=== PATIENT | female | born 1955 | race Caucasian/White ===

== ENCOUNTER 2016-11-22 10:51 | Outpatient (CLI) | payer BC ==
[2016-11-22 11:16] LABS: Anion Gap 18 mmol/L (10-20); BUN (Urea Nitrogen) 30 mg/dL (9.8-20.1); Calc. Creatinine Clearance 0 mL/min (70-130); Calcium 9.8 mg/dL (7.8-10.44); Carbon Dioxide 26 mmol/L (23-31); Chloride 103 mmol/L (98-107); Estimated GFR-MDRD 74
== END 2016-11-22 10:52 | disposition home or self-care (01) ==
LOC: BURLAB 10:51
PROVIDERS: ATTEND Internal Medicine Cardiovascular Disease
DX: I42.9 Cardiomyopathy, unspecified (principal)
CPT/HCPCS: 36415; 80048

== ENCOUNTER 2016-12-29 17:43 | Outpatient (CLI) | payer BC ==
[2016-12-29 18:15] LABS: Anion Gap 19 mmol/L (10-20); BUN (Urea Nitrogen) 52 mg/dL (9.8-20.1); Calc. Creatinine Clearance 0 mL/min (70-130); Calcium 9.8 mg/dL (7.8-10.44); Carbon Dioxide 29 mmol/L (23-31); Chloride 97 mmol/L (98-107); Estimated GFR-MDRD 48
== END 2016-12-29 17:44 | disposition home or self-care (01) ==
LOC: BURLAB 17:43
PROVIDERS: ATTEND Internal Medicine Cardiovascular Disease
DX: I42.9 Cardiomyopathy, unspecified (principal); I10 Essential (primary) hypertension
CPT/HCPCS: 36415; 80048

== ENCOUNTER 2017-02-14 10:52 | Outpatient (CLI) | payer BC ==
[2017-02-14 12:41] LABS: ALT (SGPT) 9 U/L (0-55); AST (SGOT) 16 U/L (5-34); Albumin 4.4 g/dL (3.4-4.8); Alkaline Phosphatase 83 U/L (40-150); Anion Gap 18 mmol/L (10-20); BUN (Urea Nitrogen) 36 mg/dL (9.8-20.1); Bilirubin, Total 0.5 mg/dL (0.2-1.2); Calc. Creatinine Clearance 0 mL/min (70-130); Calcium 9.7 mg/dL (7.8-10.44); Carbon Dioxide 27 mmol/L (23-31); Cardiac Risk 2.2 (Less than 4.5); Chloride 101 mmol/L (98-107); Cholesterol 128 mg/dL (< 200 Desired); Estimated GFR-MDRD 74; Globulin 2.7 g/dL (2.4-3.5); Glucose 102 mg/dL (80-115); HDL Cholesterol 58 mg/dL (>60 Neg Risk); LDL Cholesterol, Calculated 46 mg/dL; Potassium 4.1 mmol/L (3.5-5.1); Protein, Total 7.1 g/dL (5.8-8.1); Sodium 142 mmol/L (136-145); Triglycerides 118 mg/dL (Less than 150)
== END 2017-02-14 10:53 | disposition home or self-care (01) ==
LOC: BURLAB 10:52
PROVIDERS: ATTEND Internal Medicine Cardiovascular Disease
DX: E78.00 Pure hypercholesterolemia, unspecified (principal); E03.9 Hypothyroidism, unspecified
CPT/HCPCS: 36415; 80053; 80061; 84443

== ENCOUNTER 2017-04-18 17:40 | Emergency (ER) | payer BC ==
[2017-04-18 18:24] LABS: #Basophils 0.1 thou/uL (0.0-0.2); #Eosinphils 0.3 thou/uL (0.0-0.7); #Lymphocytes 1.3 thou/uL (1.20-3.40); #Monocytes 0.7 thou/uL (0.11-0.59); #Neutrophils 5.6 thou/uL (1.40-6.50); %Basophils 0.9 % (0.0-1.0); %Eosinophils 4.1 % (0.0-10.0); %Lymphocytes 16.5 % (21.0-51.0); %Monocytes 8.2 % (0.0-10.0); %Neutrophils 70.3 % (42.0-75.0); Hemoglobin 11.3 g/dL (12.0-16.0); Mean Corpuscular HGB CONC 32.3 g/dL (32.0-36.0); Mean Corpuscular Hemoglobin 29.2 pg (27.0-31.0); Mean Corpuscular Volume 90.1 fl (81.0-99.0); Mean Platelet Volume 7.7 fL (7.4-10.4); Platelet Count 202 thou/uL (130-400); RBC Distribution Width 13.2 % (11.5-14.5); Red Blood Cell (RBC) Count 3.89 mill/uL (4.20-5.40)
[2017-04-18 18:26] LABS: Bilirubin Negative (Negative); Blood, Urine Negative (Negative); Clarity Clear (Clear); Glucose, Urine (Dipstick) Negative (Negative); Leukocyte Negative (Negative); Nitrite Negative (Negative); Protein, Urine (Dipstick) Trace mg/dL (Neg-Trace); Specific Gravity, Urine 1.015 (1.005-1.030); Urobilinogen 0.2 mg/dL (0.2-1.0)
[2017-04-18 18:29] LABS: INR-International Normal Ratio 1.1; PTT 25.9 SEC (22.9-36.1); Prothrombin Time 14.6 SEC (12.0-14.7)
[2017-04-18 18:38] LABS: ALT (SGPT) 10 U/L (8-55); AST (SGOT) 13 U/L (5-34); Albumin 4.1 g/dL (3.4-4.8); Alkaline Phosphatase 85 U/L (40-150); Anion Gap 16 mmol/L (10-20); BUN (Urea Nitrogen) 36 mg/dL (9.8-20.1); Bilirubin, Total 0.2 mg/dL (0.2-1.2); Calc. Creatinine Clearance 0 mL/min (70-130); Calcium 9.9 mg/dL (7.8-10.44); Carbon Dioxide 29 mmol/L (23-31); Chloride 103 mmol/L (98-107); Estimated GFR-MDRD 66; Globulin 3.2 g/dL (2.4-3.5); Glucose 156 mg/dL (80-115); Potassium 3.9 mmol/L (3.5-5.1); Protein, Total 7.3 g/dL (6.0-8.3); Sodium 144 mmol/L (136-145)
[2017-04-18 18:39] LABS: Troponin I 0.121 ng/mL (< 0.028)
[2017-04-18] MEDS ORDERED: Bacitracin Zinc 1 Packet ONE (19:27)
--- NOTE | 2017-04-18 23:46 | RAD ---
LEFT FOREARM TWO VIEWS: Date: 04-18-17 FINDINGS: No fracture or opaque foreign body was appreciated. The radius and ulna appear intact. IMPRESSION: No acute finding. POS: HOME
--- NOTE | 2017-04-18 23:50 | RAD ---
CHEST TWO VIEWS: Date: 04-18-17 Comparison: 12-07-16 FINDINGS: The heart is moderately enlarged as usual. There are no congestive changes or pleural effusions. The lungs are clear. No mediastinal widening or shift was seen. The trachea is midline. No fractures we re appreciated. An AICD remains in place. IMPRESSION: Cardiomegaly but no acute finding. POS: HOME
--- NOTE | 2017-04-18 23:52 | RAD ---
LEFT THUMB THREE VIEWS: Date: 04-18-17 FINDINGS: No fracture or opaque foreign body was seen. The joints appear intact. IMPRESSION: No acute findings. POS: HOME
--- NOTE | 2017-04-18 23:52 | RAD ---
LEFT KNEE FOUR VIEWS: Date: 04-18-17 Comparison: None. FINDINGS: A left knee arthroplasty is in place. There is no sign of loosening or infection around the hardware . No acute fracture or opaque foreign body was seen. The patella appears intact. No large joint effu edison was seen. A fernando protrudes from the central portion of the tibial plateau that I assume is ayaz l for this particular type of appliance. IMPRESSION: No acute traumatic finding. POS: HOME
--- NOTE | 2017-04-18 23:53 | RAD ---
RIGHT THUMB THREE VIEWS: Date: 04-18-17 FINDINGS: No acute fracture or opaque foreign body was seen. There is evidence of old trauma to the base of th e first metacarpal with some resulting degenerative change at the first carpal metacarpal joint. IMPRESSION: Chronic changes but no acute finding. POS: HOME
== END 2017-04-18 19:47 | disposition home or self-care (01) ==
LOC: BURERS 17:40
DX: S51.812A Laceration without foreign body of left forearm, initial encounter (principal); S61.012A Laceration without foreign body of left thumb without damage to nail, initial encounter; S80.02XA Contusion of left knee, initial encounter; R74.8 Abnormal levels of other serum enzymes; R50.9 Fever, unspecified; E11.9 Type 2 diabetes mellitus without complications; E66.9 Obesity, unspecified; I11.0 Hypertensive heart disease with heart failure; I50.9 Heart failure, unspecified; F32.9 Major depressive disorder, single episode, unspecified; Z79.84 Long term (current) use of oral hypoglycemic drugs; Z79.899 Other long term (current) drug therapy; W01.0XXA Fall on same level from slipping, tripping and stumbling without subsequent striking against object, initial encounter
CPT/HCPCS: 12002; 36416; 51701; 71020; 80053; 81003; 82553; 83605; 84484; 85025; 85610; 85730; 87040; 90471; 93005; 94760; A4353

== ENCOUNTER 2017-05-23 10:56 | Outpatient (CLI) | payer BC ==
[2017-05-23 12:03] LABS: ALT (SGPT) 11 U/L (8-55); AST (SGOT) 14 U/L (5-34); Albumin 4.3 g/dL (3.4-4.8); Alkaline Phosphatase 77 U/L (40-150); Anion Gap 18 mmol/L (10-20); BUN (Urea Nitrogen) 29 mg/dL (9.8-20.1); Bilirubin, Total 0.5 mg/dL (0.2-1.2); Calc. Creatinine Clearance 0 mL/min (70-130); Calcium 9.8 mg/dL (7.8-10.44); Carbon Dioxide 27 mmol/L (23-31); Cardiac Risk 2.9 (Less than 4.5); Chloride 101 mmol/L (98-107); Cholesterol 150 mg/dl (< 200 Desired); Estimated GFR-MDRD 75; Globulin 2.9 g/dL (2.4-3.5); Glucose 119 mg/dL (80-115); HDL Cholesterol 52 mg/dL (>60 Neg Risk); LDL Cholesterol, Calculated 68 mg/dL; Potassium 4.4 mmol/L (3.5-5.1); Protein, Total 7.2 g/dL (6.0-8.3); Sodium 142 mmol/L (136-145); Triglycerides 152 mg/dL (Less than 150)
== END 2017-05-23 10:57 | disposition home or self-care (01) ==
LOC: BURLAB 10:56
PROVIDERS: ATTEND Internal Medicine Cardiovascular Disease
DX: E03.9 Hypothyroidism, unspecified (principal)
CPT/HCPCS: 36415; 80053; 80061; 84443